=== PATIENT | female | born 1955 | race Two or more races ===

== ENCOUNTER → 2022-10-18 | Emergency (ER) | payer OTHER ==
[~2022-10-18] VITALS: Ht 160 cm; Wt 87.5 kg
[~2022-10-18] MED LIST: CIPRO500 MG PO; KETO10TA2 PO; LOSARTAN POTASS50 MG PO; SYNTHROID112 MCG PO; TAMS0.4C PO; TOPROL XL100 M1 PO
== END | disposition home or self-care (01) ==
LOC: ER 15:10
DX: R10.31 Right lower quadrant pain (principal); I10 Essential (primary) hypertension; E11.9 Type 2 diabetes mellitus without complications